=== PATIENT | male | born 2000 | race Hispanic/Latino ===

== ENCOUNTER 2025-03-22 12:09 | Emergency (ER) | payer BC | END 2025-03-22 12:40 | disposition home or self-care (01) | LOC: BURERS 12:09 | DX: S60.362A Insect bite (nonvenomous) of left thumb, initial encounter (principal); F17.290 Nicotine dependence, other tobacco product, uncomplicated; W57.XXXA Bitten or stung by nonvenomous insect and other nonvenomous arthropods, initial encounter | CPT/HCPCS: 99282 ==